=== PATIENT | male | born 1960 | race Caucasian/White ===

== ENCOUNTER 2017-02-13 18:26 | Emergency (ER) | payer MEDICARE, MEDICAID ==
[2017-02-13] VITALS (7 sets, daily range): BP systolic 87–136; BP diastolic 48–83
[~2017-02-13] VITALS: Ht 175.3 cm; Wt 70.3 kg
[~2017-02-13 18:26] MED LIST: ACYCLOVIR400 MG ORAL; ANDROGEL1.25 GM TD; ATORVASTATIN CA20 MG ORAL; DIVALPROEX SOD500 MG PO; FLUPHENAZINE HCL1 MG PO; NORVIR100 MG ORAL; PREZISTA400 MG ORAL; PROPRANOLOL HCL20 MG ORAL; SEROSTIM6 M1 SQ; TRUVADA 200 MG1 EAC1 ORAL; VENLAFAXINE HCL75 MG ORAL; [UNRECOGNIZED DRUG - OTHER] PO
[2017-02-13] MEDS ORDERED: CREON DR 6,0001 EACH PO (18:51)
--- NOTE | 2017-02-13 19:00 | Emergency Room Report ---
History of Present Illness General Chief Complaint: Multiple Trauma/Fall Source: Patient Present Illness HPI The patient is a 56-year-old male with a history of HIV, seizure disorder, history of multiple syncopes, and methamphetamine use presenting for syncope and facial pain. The patient states that he had just finished a workup for the first time in 3 months, went from a bending over to standing position, felt dizzy and fell forward. he is unsure of how long he was unconscious. he awoke with pain and bleeding of the nose. he states that this exact situation has occurred twice in the past. He states that he has only been taking 2 Depakote instead of 3 as he is supposed to. He states that he has not been eating well or drinking water well. The pain is described as a 6/10 dull ache to the nose and does not radiate. Pain worse with touch. He denies any other symptoms including nausea, vomiting, fever, chills, chest pain, shortness of breath, dizziness, blurred vision Allergies: Coded Allergies: No Known Allergies (Unverified , 07/25/13) Patient History Past Medical History: see triage record Past Surgical History: other Social History: Reports: drug use - methamphetamine, smoking Reviewed Nursing Documentation: PMH: Agreed, PSxH: Agreed Nursing Documentation-PMH Past Medical History: No History, Except For Hx Hypertension: No Hx Pacemaker: No Hx Asthma: No Hx COPD: No Hx Diabetes: No Hx Cancer: No Hx Gastrointestinal Problems: No Hx Dialysis: No History Of Psychiatric Problem: Yes - bipolar Hx Neurological Problems: Yes Hx Cerebrovascular Accident: No Hx Seizures: Yes Hx Tremors: Yes - RIGHT ARM TREMORS Hx Syncope: Yes Review of Systems All Other Systems: negative except mentioned in HPI Physical Exam Vital Signs Date Time Temp Pulse Resp B/P Pulse Ox O2 Delivery O2 Flow Rate FiO2 02/13/17 18:39 98.8 93 16 113/71 98 Room Air Sp02 EP Interpretation: reviewed, normal General Appearance: no apparent distress, alert, GCS 15, non-toxic Head: normocephalic, atraumatic Eyes: bilateral eye PERRL, bilateral eye normal inspection ENT: hearing grossly normal, uvula midline, other - No septal hematoma. TTP, ecchymosis, and edema to mid nose. Nose is midline Neck: full range of motion, supple/symm/no masses Respiratory: chest non-tender, lungs clear, normal breath sounds, speaking full sentences Musculoskeletal: back normal, gait/station normal, normal range of motion, non- tender Neurologic: alert, oriented x3, responsive, motor strength/tone normal, sensory intact, speech normal Psychiatric: judgement/insight normal, memory normal, mood/affect normal, no suicidal/homicidal ideation Skin: normal color, no rash, warm/dry, well hydrated Lymphatic: no adenopathy Medical Decision Making PA Attestation Dr. Littlejohn is my supervising physician. Patient management was discussed with my supervising physician Diagnostic Impression: Primary Impression: Orthostatic hypotension Additional Impressions: Syncope Qualified Codes: R55 - Syncope and collapse Nasal fracture Qualified Codes: S02.2XXA - Fracture of nasal bones, initial encounter for closed fracture ER Course The patient is a 56-year-old male presenting for syncope and facial pain status post fall DDx: ACS, alcohol intox, drug abuse, positional hypotension, vasovagal episode, dehydration, fracture, septal hematoma PE: vitals WNL at rest. Orthostatic vital signs show hypotension with elevated heart rate with position change. HEENT: Head NC/AT. PERRL. EOMI. Nose has ecchymosis, edema, and TTP over the nasal bridge. midline. No septal hematoma. CBC unremarkable. No anemia. CMP shows elevated creatinine Cardiac enzymes WNL. UDS shows + methamphetamine and THC Depakote levels below normal range CT head unremarkable. CT facial bones shows acute nasal fracture. Pt is given IV fluids and norco and is feeling better. He is given one dose of depakote. He will be MD'ed home with a prescription for norco and motrin and will start to take 3 depakote daily as directed. He needs to FU with PMD and ENT. ER precautions given Laboratory Tests Test 02/13/17 19:05 02/13/17 19:51 White Blood Count 7.6 K/UL (4.8-10.8) Red Blood Count 4.55 M/UL (4.70-6.10) L Hemoglobin 14.1 G/DL (14.2-18.0) L Hematocrit 41.7 % (42.0-52.0) L Mean Corpuscular Volume 92 FL (80-99) Mean Corpuscular Hemoglobin 31.1 PG (27.0-31.0) H Mean Corpuscular Hemoglobin Concent 33.9 G/DL (32.0-36.0) Red Cell Distribution Width 11.9 % (11.6-14.8) Platelet Count 280 K/UL (150-450) Mean Platelet Volume 7.4 FL (6.5-10.1) Neutrophils (%) (Auto) 67.4 % (45.0-75.0) Lymphocytes (%) (Auto) 20.8 % (20.0-45.0) Monocytes (%) (Auto) 9.0 % (1.0-10.0) Eosinophils (%) (Auto) 2.1 % (0.0-3.0) Basophils (%) (Auto) 0.7 % (0.0-2.0) Sodium Level 135 mEQ/L (135-145) Potassium Level 4.7 mEQ/L (3.4-4.9) Chloride Level 93 mEQ/L (98-107) L Carbon Dioxide Level 25 mEQ/L (20-30) Anion Gap 17 (5-15) H Blood Urea Nitrogen 21 mg/dL (7-23) Creatinine 1.4 mg/dL (0.7-1.2) H Estimate Glomerular Filtration Rate 52.6 mL/min (>60) Glucose Level 102 mg/dL (74-106) Calcium Level 10.0 mg/dL (8.6-10.2) Total Bilirubin 0.3 mg/dL (0.0-1.2) Aspartate Amino Transferase (AST) 33 U/L (5-40) Alanine Aminotransferase (ALT) 20 U/L (3-41) Alkaline Phosphatase 85 U/L (40-129) Creatine Kinase MB 4.6 ng/mL (< 6.7) Troponin I < 0.30 ng/mL (<=0.30) Total Protein 7.2 g/dL (6.6-8.7) Albumin 3.8 g/dL (3.5-5.2) Globulin 3.4 g/dL Albumin/Globulin Ratio 1.1 (1.0-2.7) Lipase 24 U/L (< 60) Valproic Acid Level 29 ug/mL (50-100) L Urine Color Yellow Urine Appearance Clear Urine pH 5 (4.5-8.0) Urine Specific [place] 1.030 (1.005-1.035) Urine Protein 2+ (NEGATIVE) H Urine Glucose (UA) Negative (NEGATIVE) Urine Ketones 1+ (NEGATIVE) H Urine Occult Blood 2+ (NEGATIVE) H Urine Nitrite Negative (NEGATIVE) Urine Bilirubin Negative (NEGATIVE) Urine Urobilinogen 1 MG/DL (0.0-1.0) H Urine Leukocyte Esterase 1+ (NEGATIVE) H Urine RBC 5-10 /HPF (0 - 0) H Urine WBC 2-4 /HPF (0 - 0) Urine Squamous Epithelial Cells None /LPF (NONE/OCC) Urine Bacteria Few /HPF (NONE) Urine Opiates Screen Negative (NEGATIVE) Urine Barbiturates Screen Negative (NEGATIVE) Phencyclidine (PCP) Screen Negative (NEGATIVE) Urine Amphetamines Screen Positive (NEGATIVE) H Urine Benzodiazepines Screen Negative (NEGATIVE) Urine Cocaine Screen Negative (NEGATIVE) Urine Marijuana (THC) Screen Positive (NEGATIVE) H Lab Results Impression CBC unremarkable. No anemia. CMP shows elevated creatinine Cardiac enzymes WNL. UDS shows + methamphetamine and THC Depakote levels below normal range EKG Diagnostic Results Rate: normal - 92 Rhythm: NSR ST Segments: no acute changes ASA given to the pt in ED: No PA Scribe Text EKG was reviewed and read with my supervising physician. No acute ST segment changes are seen. Normal rate and rhythm. No acute changes. CT/MRI/US Diagnostic Results CT/MRI/US Diagnostic Results #1: Imaging Test Ordered: CT head Impression unremarkable CT/MRI/US Diagnostic Results #2: Imaging Test Ordered: ct facial bones Impression + nasal fracture. Last Vital Signs Date Time Temp Pulse Resp B/P Pulse Ox O2 Delivery O2 Flow Rate FiO2 02/13/17 18:39 98.8 93 16 113/71 98 Room Air Status: improved Disposition: HOME, SELF-CARE Condition: Improved Scripts Hydrocodone Bit/Acetaminophen 5-325* (NORCO 5-325 TABLET*) 1 Each Tablet 1 TAB ORAL Q6HR Y for For Pain, #10 TAB Prov: TERZIANJACQUEY P.A. 02/13/17 Ibuprofen* (MOTRIN*) 600 Mg Tablet 600 MG ORAL Q8H Y for For Pain, #30 TAB 0 Refills Prov: TERZIAN,FLORINA P.A. 02/13/17 AFUAANJACQUEY P.A. February 13, 2017 18:59
[2017-02-13 19:45] LABS: TROPONIN I < 0.30 ng/mL (<=0.30)
[2017-02-13 19:46] LABS: ALBUMIN/GLOBULIN RATIO 1.1 (1.0-2.7); CREATININE 1.4 mg/dL (0.7-1.2); GLOMERULAR FILTRATION RATE 52.6 mL/min (>60); POTASSIUM 4.7 mEQ/L (3.4-4.9); TOTAL PROTEIN 7.2 g/dL (6.6-8.7)
[2017-02-13 19:56] LABS: CKMB 4.6 ng/mL (< 6.7)
[2017-02-13 20:17] LABS: BASOPHILS % (AUTO) 0.7 % (0.0-2.0); EOSINOPHILS % (AUTO) 2.1 % (0.0-3.0); LYMPHOCYTES % (AUTO) 20.8 % (20.0-45.0); MEAN CORPUSCULAR HEMOGLOBIN 31.1 PG (27.0-31.0); MEAN CORPUSCULAR HGB CONC 33.9 G/DL (32.0-36.0); MEAN CORPUSCULAR VOLUME 92 FL (80-99); MEAN PLATELET VOLUME 7.4 FL (6.5-10.1); NEUTROPHILS % (AUTO) 67.4 % (45.0-75.0); PLATELET COUNT 280 K/UL (150-450); RED BLOOD COUNT 4.55 M/UL (4.70-6.10); RED CELL DISTRIBUTION WIDTH 11.9 % (11.6-14.8); WHITE BLOOD COUNT 7.6 K/UL (4.8-10.8)
[2017-02-13 20:21] LABS: APPEARANCE,URINE CLEAR; KETONES,URINE 1+ (NEGATIVE); LEUKOCYTE ESTERASE ,URINE 1+ (NEGATIVE); NITRITE,URINE NEGATIVE (NEGATIVE); PH,URINE 5 (4.5-8.0); PROTEIN,URINE 2+ (NEGATIVE); UROBILINOGEN,URINE 1 MG/DL (0.0-1.0)
[2017-02-13 20:30] LABS: BACTERIA,URINE FEW /HPF
[2017-02-13] MEDS ORDERED: Depakote 500mg tab ORAL ONE (20:45)
[2017-02-13] MEDS ORDERED: Norco 5mg/325mg tab ORAL ONE (21:00)
[2017-02-13] MEDS ORDERED: IBUPROFEN600 MG ORAL (21:01)
[2017-02-13] MEDS ORDERED: NORCO 5-325 TA1 EAC1 ORAL (21:01)
--- NOTE | 2017-02-14 09:10 | Diagnostic Imaging Report ---
Indications: Patient changes and had a fall Technique: Spiral acquisitions obtained through the brain. Angled axial and coronal 5 x 5 mm slices were reconstructed. Total dose length product 1490 mGycm. CTDI vol(s) 70 mGy. Dose reduction achieved using automated exposure control Comparison: 07/25/2013 Findings: Focal low attenuation, presumably an area of encephalomalacia measuring approximately 12 mm diameter is seen in the left frontal deep white matter, unchanged. No acute hemorrhage or edema. No mass effect or midline shift. There is mild age-related enlargement of the ventricles and extra-axial CSF spaces. There is mild periventricular deep white matter chronic ischemic change. Intact calvarium. Normal orbits and sinuses. No significant interim change the previous study Impression: Negative for acute intracranial bleed or mass effect Old left frontal encephalomalacia Other chronic and age-related changes, as described This agrees with the preliminary interpretation provided overnight by Dr. Hussein The CT scanner at [facility] is accredited by the [employer] and the scans are performed using protocols designed to limit radiation exposure to as low as reasonably achievable to attain images of sufficient resolution adequate for diagnostic evaluation.
--- NOTE | 2017-02-14 09:13 | Diagnostic Imaging Report ---
Indications: PAIN patient fainted and had a fall Technique: Spiral images obtained through the facial bones. No IV contrast utilized. Multiplanar reconstructions were generated.Total dose length product 616 mGycm. CTDIvol(s) 28mGy. Dose reduction achieved using automated exposure control Comparison: None Findings: There is a comminuted minimally displaced fracture of the anterior nasal bone. There may also be a fracture of the anterior nasal septum. There is also a fracture of the nasal process of the maxilla. There is mild associated soft tissue swelling with some soft tissue gas likely indicating penetrating trauma. No other acute fractures. There is minimal left maxillary sinus mucosal thickening and minimal bilateral ethmoid disease. No worrisome sinus air-fluid levels are demonstrated. The optic globes are intact. Intact dentition. Impression: Positive for nasal bone, nasal process of the maxilla, and possibly associated nasal septal fracture Minimal sinus disease This agrees with the preliminary interpretation provided overnight by Dr. Hussein The CT scanner at [facility] is accredited by the [employer] and the scans are performed using protocols designed to limit radiation exposure to as low as reasonably achievable to attain images of sufficient resolution adequate for diagnostic evaluation.
--- NOTE | 2017-02-14 10:50 | Diagnostic Imaging Report ---
Indication: SYNCOPE Technique: One view of the chest Comparison: 10/22/2014 Findings: Lungs and pleural spaces are clear. Heart size is normal. No significant interim change Impression: No acute process
--- NOTE | 2017-02-15 16:59 | Cardiology Report ---
APPROVED REPORT EKG Measurement Heart [id number] Normal sinus rhythm Incomplete right bundle branch block Borderline ECG
== END 2017-02-13 21:43 | disposition home or self-care (01) ==
LOC: EMR 19:35
DX: I95.1 Orthostatic hypotension (principal); R55 Syncope and collapse; S02.2XXA Fracture of nasal bones, initial encounter for closed fracture; W19.XXXA Unspecified fall, initial encounter; Y92.89 Other specified places as the place of occurrence of the external cause; G93.89 Other specified disorders of brain; G40.909 Epilepsy, unspecified, not intractable, without status epilepticus; F17.200 Nicotine dependence, unspecified, uncomplicated; F15.90 Other stimulant use, unspecified, uncomplicated
CPT/HCPCS: 36415; 70450; 70486; 71010; 80053; 80164; 80300; 81003; 82553; 83690; 84484; 85025; 93005; 96374; 96375

== ENCOUNTER → 2019-04-11 | Outpatient (CLI) | payer MEDICARE, MEDICAID ==
[~2019-04-11] MED LIST changes: +CREON DR 6,0001 EACH PO; +IBUPROFEN600 MG ORAL; +NORCO 5-325 TA1 EAC1 ORAL
--- NOTE | 2019-04-11 12:44 | Diagnostic Imaging Report ---
Indication: Cough Comparison: 02/13/2017 A single view chest radiograph was obtained. Findings: Cardiomediastinal appearance is within normal limits for age. The lungs are clear. Pulmonary vascularity is appropriate. The diaphragmatic contour is smooth and costophrenic angles are sharp. No pleural effusions are identified. The bones are unremarkable. Impression: No acute findings
== END | disposition home or self-care (01) ==
LOC: RAD 09:26
DX: J20.9 Acute bronchitis, unspecified (principal)
CPT/HCPCS: 71046

== ENCOUNTER 2020-09-14 12:32 | Emergency (ER) | payer MEDICARE, MEDICAID ==
[~2020-09-14] VITALS: Ht 177.8 cm; Wt 77.1 kg
--- NOTE | 2020-09-14 12:40 | NUR ---
ED Nurse Note: Pt ambulated to ED d/t swollen lower lip onset last night. Pt denies eating anything unusual; ate pb sandwich but denies allergies to nuts. Pt is AOx4, calm and cooperative to care, VSS, on RA, afebrile on triage.
[2020-09-14 12:45] VITALS: BP 137/85
--- NOTE | 2020-09-14 12:45 | NUR ---
Note khloe in EDM - 09/14/20 at 1437 by FILIPE ER DISCHARGE NOTE: Patient is cleared to be discharged per ERPA, pt is aox4, on room air, with stable vital signs. pt was given dc and prescription instructions, pt was able to verbalize understanding, pt id band removed. pt is able to ambulate with steady gait. pt took all belongings.
--- NOTE | 2020-09-14 12:58 | Emergency Room Report ---
History of Present Illness General Chief Complaint: Edema Present Illness HPI 59-year-old male with history of hypertension currently taking losartan here complaining of lower lip edema and pain after eating last night. Patient denies anaphylaxis, speaking full sentences. Patient is hard of hearing. Denies chest pain shortness of breath. Right lower lobe appears to be edematous. Airway clear. Has not taken medication for symptom relief. Patient reports that he has been taking losartan for a long time. Denies chest pain, shortness of breath, headache and numbness. Denies fever chills. (Tiana Grover) Allergies: Coded Allergies: No Known Allergies (Unverified , 07/25/13) COVID-19 Screening Contact w/high risk pt: Yes Experienced COVID-19 symptoms?: No COVID-19 Screening: Negative COVID-19 COVID-19 Testing Source: unk (Tiana Grover) Patient History Past Medical History: see triage record Past Surgical History: none Pertinent Family History: none Reviewed Nursing Documentation: PMH: Agreed; PSxH: Agreed (Tiana Grover) Nursing Documentation-PMH Hx Hypertension: No Hx Pacemaker: No Hx Asthma: No Hx COPD: No Hx Diabetes: No Hx Cancer: No Hx Gastrointestinal Problems: No Hx Dialysis: No Hx Neurological Problems: Yes Hx Cerebrovascular Accident: No Hx Seizures: Yes Hx Tremors: Yes - RIGHT ARM TREMORS Hx Syncope: Yes (Tiana Grover) Review of Systems All Other Systems: negative except mentioned in HPI (Tiana Grover) Physical Exam Vital Signs Date Time Temp Pulse Resp B/P (MAP) Pulse Ox O2 Delivery O2 Flow Rate FiO2 09/14/20 12:37 98.4 77 19 137/85 (102) 94 Room Air Sp02 EP Interpretation: reviewed, normal General Appearance: no apparent distress, alert, GCS 15, non-toxic Head: normocephalic, atraumatic Eyes: bilateral eye normal inspection, bilateral eye PERRL ENT: hearing grossly normal, normal pharynx, normal voice, other - angioedema Right lower lip Neck: full range of motion, supple, supple/symm/no masses, other - no anaphylaxis Respiratory: chest non-tender, lungs clear, normal breath sounds, no retraction, no accessory muscle use, speaking full sentences Cardiovascular #1: regular rate, rhythm, no edema Gastrointestinal: normal bowel sounds, non tender, soft, non-distended, no guarding, no rebound Rectal: deferred Musculoskeletal: back normal Neurologic: alert, motor strength/tone normal, oriented x3, sensory intact, responsive, speech normal Psychiatric: judgement/insight normal, memory normal, mood/affect normal, no suicidal/homicidal ideation Skin: no rash Lymphatic: no adenopathy (Tiana Grover) Medical Decision Making PA Attestation Diagnosis and treatment plans were reviewed and discussed with my supervising physician Dr. Corey (Tiana Grover) Diagnostic Impression: Primary Impression: Angioedema ER Course 59-year-old male with history of hypertension currently taking losartan here complaining of lower lip edema and pain after eating last night. Patient denies anaphylaxis, speaking full sentences. Patient is hard of hearing. Denies chest pain shortness of breath. Right lower lobe appears to be edematous. Airway clear. Has not taken medication for symptom relief. Patient reports that he has been taking losartan for a long time. Denies chest pain, shortness of breath, headache and numbness. Denies fever chills. Ddx considered but are not limited to: Angioedema, anaphylaxis, allergic reaction, pharyngitis Vital signs: are WNL, pt. is afebrile H&PE are most consistent with: Angioedema ORDERS: Prednisone, Benadryl, EpiPen for emergencies ED INTERVENTIONS: Dexamethasone DISCHARGE: At this time pt. is stable for d/c to home. Will provide printed patient care instructions, and any necessary prescriptions. Care plan and follow up instructions have been discussed with the patient prior to discharge. Take medication as directed, avoid taking losartan as it will exacerbate your angioedema and anaphylaxis. Use EpiPen only if anaphylaxis. If worsening symptoms return to the emergency room (Tiana Grover) ER Course I saw and evaluated the patient and discussed the care with Tiana GANDARA. I agree with the findings and plan as documented in the note. 59-year-old male with a patent airway, only swelling of the right lower lip no acute changes over 24 hours findings occurred last night, patient instructed to discontinue losartan Patient with mild angioedema of only the bottom lip strict return precautions discussed follow-up with PCP (Dwight Corey MD) Last Vital Signs Date Time Temp Pulse Resp B/P (MAP) Pulse Ox O2 Delivery O2 Flow Rate FiO2 09/14/20 12:37 98.4 77 19 137/85 (102) 94 Room Air (Tiana Grover) Disposition: HOME, SELF-CARE Condition: Stable Scripts Epinephrine (Epipen 2-Jono) 0.3 Mg/0.3 Ml Auto.injct 0.3 MG IM PRN, #2 EA if anaphylaxis only Prov: Tiana Grover 09/14/20 Diphenhydramine HCl (Benadryl) 25 Mg Capsule 25 MG PO TID, #30 CAP Prov: Tiana Grover 09/14/20 Prednisone* (PREDNISONE*) 20 Mg Tablet 40 MG ORAL DAILY for 5 Days, #10 TAB Prov: Tiana Grover 09/14/20 Patient Instructions: Angioedema, Edema, [id number] Additional Instructions: Take medication as directed, follow primary care provider, avoid taking your losartan, use epinephrine pen only when anaphylaxis. If worsening symptoms return to the emergency room Tiana Grover Sep 14, 2020 12:58 Dwight Corey MD Sep 16, 2020 12:51
[2020-09-14] MEDS ORDERED: PREDNISONE20 MG ORAL (13:01)
[2020-09-14] MEDS ORDERED: BENADRYL25 M3 PO (13:01)
[2020-09-14] MEDS ORDERED: EPIPEN 2-P0.3 MG/0.3 IM (13:01)
[2020-09-14 13:17] VITALS: BP 136/86
--- NOTE | 2020-09-14 13:17 | NUR ---
ER DISCHARGE NOTE: Patient is cleared to be discharged per ERPA, pt is aox4, on room air, with stable vital signs. pt was given dc and prescription instructions, pt was able to verbalize understanding, pt id band removed. pt is able to ambulate with steady gait. pt took all belongings.
== END 2020-09-14 13:17 | disposition home or self-care (01) ==
LOC: EMR 13:01
DX: T78.3XXA Angioneurotic edema, initial encounter (principal); I10 Essential (primary) hypertension; Z79.899 Other long term (current) drug therapy; H91.90 Unspecified hearing loss, unspecified ear
CPT/HCPCS: 96372; 99283; J1100

== ENCOUNTER 2020-09-24 11:25 | Emergency (ER) | payer MEDICARE, MEDICAID ==
[~2020-09-24] VITALS: Ht 177.8 cm; Wt 77.1 kg
[~2020-09-24 11:25] MED LIST changes: +BENADRYL25 M3 PO; +EPIPEN 2-P0.3 MG/0.3 IM; +PREDNISONE20 MG ORAL
[2020-09-24 11:43] VITALS: BP 170/105
--- NOTE | 2020-09-24 11:44 | NUR ---
ED Nurse Note: Pt ambulated to ED from home d/t lip swelling that has been going on over a week ago. Pt is AOx4, calm and cooperative to care, VSS, on breathing even and unlabored, pt satting at 100% on RA. Placed on RME, ERMD at bedside.
[2020-09-24] MEDS ORDERED: BACTRIM DS TAB1 EAC1 ORAL (11:57)
[2020-09-24] MEDS ORDERED: PREDNISONE20 MG ORAL (11:57)
[2020-09-24] MEDS ORDERED: BENADRYL25 MG ORAL (11:57)
--- NOTE | 2020-09-24 11:57 | Emergency Room Report ---
History of Present Illness General Chief Complaint: Allergic Reaction Source: Patient Present Illness HPI 59-year-old male with past medical history of HIV, bipolar disorder, hypertension presents for recheck for right lower lip swelling. He was seen last week and told he has possible angioedema, however his symptoms have not improved. They have stayed the same. No progression of symptoms. He states that there was some "drainage" from the right lip and has some sore blisters there too. He denies any oral sex, odynophagia, drooling, stridor or concern for STDs at this time. He is not sexually active. His infectious disease doctor is across the street from [facility]. Last CD4 count was greater than 500. Last viral load was undetectable. He denies any shortness of breath, nausea, vomiting, stridor, drooling, headache, vision changes, neck pain, petechial rash, chest pain or hemoptysis No new dietary changes, medications, soaps or detergents He denies history of hospitalization for anaphylaxis or angioedema. The patient's symptoms were gradual onset, severity was moderate, duration since greater than 1 week. Quality: Swollen, draining pus Past medical history: Bipolar disorder, HIV Past surgical history: Denies Smoking: Denies Alcohol use: Denies Drug use: Denies Review of systems: CONST: No fevers or chills, No night sweats PULMONARY: No productive cough, No shortness of breath CARDIAC: No chest pain, No palpitations GI: No vomiting, No diarrhea , No melena_or_BRBPR : No dysuria, No hematuria, No discharge NEURO: No new_focal_weakness_or_numbness, No confusion, No vision changes 14 point Review of Systems is otherwise negative except per HPI Physical Exam: GENERAL: Awake_alert_ nontoxic, no acute distress Spo2 100% on RA -normal EYES: Extraocular muscles are intact. Conjunctivae clear. Lids without swelling ENT: Right lower lip induration with 2 blisters. No active drainage. No swelling of hard/soft palate/tongue swelling. No hoarse voice,stridor, drooling. No oral candidiasis or thrush. External nose and ear normal_in_appearance. Oropharynx clear. Head_atraumatic, Moist_oral_mucosa. Poor dentition. No hot potato voice. No submandibular swellin g or crepitus. No tonsilar exudate or swelling. NECK: No JVD. No meningismus. No thyromegaly. Supple. Trachea midline RESP: Normal respiratory effort. Symmetric rise. No stridor. Clear_to_auscultation_No_rales_No_wheezes CARDIAC: Regular rate and regular rhytm. No_significant pedal edema. ABDOMEN: Soft. Nondistended. Nontender_No_rebound_or_guarding. MSK: Normal muscle tone, without rigidity. Extremities without asymmetric deformity or swelling. SKIN: Warm and dry. No visible cyanosis or pallor. No petechiae NEUROLOGIC: Alert, oriented x3. Motor_and_sensation_grossly_intact. No truncal ataxia. Gait_normal Psych: Normal mood and affect, normal judgment and insight - COORDINATION OF CARE Case was discussed with: Patient Chart reviewed from previous ED visit. Medical Decision Making/Plan: DDx: cellulitis vs abscess vs thrush DOUBT angioedema, anaphylaxis, shawna, or deep space neck infection Initial VSS are stable. Airway is intact with no stridor, drooling, or increased WOB. No oral, tongue swelling or hoarse voice. No signs of deep space neck infection. There is stable R lower lip swelling with pustular indurated lesion. No submandibular crepitus or swelling. No shawna angina. Patient appears to be presenting with mild lower lip infection vs Less likely allergic reaction. There is no evidence of angioedema, no oropharyngeal involvement/thrush, no difficulty breathing or nausea vomiting. Patient is nontoxic and well-appearing the patient is tolerating fluids. The findings are minimal and due to nonprogression of symptoms here the patient is safe to discharge home. The patient feels comfortable with plan and will return immediately if symptoms begin to worsen. Patient given a dose of steroids and Benadryl here in the emergency department. I suspect infectious etiology. Unlikely angioedema, patient will be discharged with an bactrim, EpiPen and Benadryl. Patient was instructed to avoid all potential allergic stimuli in the future The patient was instructed to avoid potential precipitating factor and to follow up with their regular physician for referral to windows server specialist for definitive allergy testing. Pertinent results reviewed with the patient. I educated the patient on the current treatment plan including the risks, benefits, and alternatives. I also discussed the extent and limitations of the current evaluation. The patient expressed understanding and agreement with plan. I recommended PMD follow-up within 12-24 hrs. Also advised that the patient return to the Emergency Department as soon as possible if they experience any new, persistent, or worsening symptoms. Allergies: Coded Allergies: LOSARTAN (Verified Allergy, Severe, angioedema, 09/16/20) COVID-19 Screening Contact w/high risk pt: No Experienced COVID-19 symptoms?: No COVID-19 Testing performed ASSISTANT GOLF COURSE SUPERINTENDENT: No Nursing Documentation-PMH Past Medical History: No History, Except For Hx Hypertension: No Hx Pacemaker: No Hx Asthma: No Hx COPD: No Hx Diabetes: No Hx Cancer: No Hx Gastrointestinal Problems: No Hx Dialysis: No Hx Neurological Problems: Yes Hx Cerebrovascular Accident: No Hx Seizures: Yes Hx Tremors: Yes - RIGHT ARM TREMORS Hx Syncope: Yes Physical Exam Vital Signs Date Time Temp Pulse Resp B/P (MAP) Pulse Ox O2 Delivery O2 Flow Rate FiO2 09/24/20 11:30 99.0 88 18 170/105 (126) 100 Room Air Sp02 EP Interpretation: reviewed, normal Medical Decision Making Diagnostic Impression: Primary Impression: Infection of lip Additional Impression: Lip swelling Reevaluation Time: 11:55 Last Vital Signs Date Time Temp Pulse Resp B/P (MAP) Pulse Ox O2 Delivery O2 Flow Rate FiO2 09/24/20 11:43 99.0 18 170/105 100 Room Air 09/24/20 11:43 88 Status: improved Disposition: HOME, SELF-CARE Admit Decision Time: 11:55 Condition: Stable Scripts Diphenhydramine Hcl* (BENADRYL*) 25 Mg Capsule 25 MG ORAL Q6H PRN for Itching for 7 Days, #28 CAP Prov: Nivia Hernandez D.O. 09/24/20 Prednisone* (PREDNISONE*) 20 Mg Tablet 20 MG ORAL DAILY for 3 Days, #6 TAB 0 Refills Prov: Samir Hernandeze D.O. 09/24/20 Trimethoprim/Sulfamethoxazole 160/800* (BACTRIM DS TABLET*) 1 Each Tablet 1 TAB ORAL Q12H, #14 TAB 0 Refills Prov: Nivia Hernandez D.O. 09/24/20 Patient Instructions: Abscess, Allergies, Cellulitis, [id number] Additional Instructions: Instructions for patient/button tufter: Follow up with your physician in 12-24 hrs for reevaluation and wound check. Use EpiPen only in case of emergencies as we discussed. Follow-up with your infectious disease specialist for continued management of your HIV Follow-up with your doctor sooner if your condition requires a more timely clinical reevaluation. Return to the emergency department immediately if you feel that your condition is worsening or if you have any new or concerning symptoms. Review your discharge instructions and take any prescriptions given as instructed. [facility] PROVIDES FREE OR LOW-COST HEALTH SERVICES TO PEOPLE WHO CAN SHOW PROOF THAT THEY LIVE IN [facility]. TO FIND MORE CLINICS PARTNERED WITH [facility] TO PROVIDE SERVICE, PLEASE CALL . Nivia Hernandez D.O. Sep 24, 2020 11:57
[2020-09-24] MEDS ORDERED: Tetanus/Diptheria/Pertussis IM ONE ×2 (12:00)
[2020-09-24 12:07] VITALS: BP 158/88
--- NOTE | 2020-09-24 12:07 | NUR ---
ER DISCHARGE NOTE: Patient is cleared to be discharged per ERMD, pt is aox4, on room air, with stable vital signs. pt was given dc and prescription instructions, pt was able to verbalize understanding, pt id band removed. pt is able to ambulate with steady gait. pt took all belongings.
[2020-09-25] MEDS ORDERED: MUPIROCIN22 GM TOPIC (15:26)
== END 2020-09-24 12:07 | disposition home or self-care (01) ==
LOC: EMR 11:45
DX: L08.9 Local infection of the skin and subcutaneous tissue, unspecified (principal); R22.0 Localized swelling, mass and lump, head; G40.909 Epilepsy, unspecified, not intractable, without status epilepticus; B20 Human immunodeficiency virus [HIV] disease; Z88.8 Allergy status to other drugs, medicaments and biological substances
CPT/HCPCS: 90471; 90715; 99282; J8540

== ENCOUNTER 2020-09-25 15:00 | Emergency (ER) | payer MEDICARE, MEDICAID ==
[~2020-09-25] VITALS: Ht 177.8 cm; Wt 77.1 kg
[~2020-09-25 15:00] MED LIST changes: +BACTRIM DS TAB1 EAC1 ORAL; +BENADRYL25 MG ORAL
[2020-09-25 15:21] VITALS: BP 129/87
--- NOTE | 2020-09-25 15:21 | NUR ---
ED Nurse Note: pt presents to ED c/o bottom lip swelling and open sore. states that he was seen and treated here yesterday, has been taking abx and was told to come back today for reevaluation of lip. pt is also c/o L ear pain
--- NOTE | 2020-09-25 15:25 | Emergency Room Report ---
History of Present Illness General Chief Complaint: Pain Present Illness HPI 60-year-old male with history of hypertension currently controlled here requesting a follow-up on lip swelling and infection. Patient was seen here at ED 1 day ago and was prescribed prednisone, Bactrim DS, Benadryl patient reports that the lip started draining today. No anaphylaxis noted. Patient appears to be afebrile and stable. Denies trauma. Allergies: Coded Allergies: LOSARTAN (Verified Allergy, Severe, angioedema, 09/16/20) COVID-19 Screening Contact w/high risk pt: No Experienced COVID-19 symptoms?: No COVID-19 Testing performed MELON PACKER: No Patient History Past Medical History: see triage record Past Surgical History: none Pertinent Family History: none Immunizations: UTD Reviewed Nursing Documentation: PMH: Agreed; PSxH: Agreed Nursing Documentation-PMH Hx Hypertension: No Hx Pacemaker: No Hx Asthma: No Hx COPD: No Hx Diabetes: No Hx Cancer: No Hx Gastrointestinal Problems: No Hx Dialysis: No Hx Neurological Problems: Yes Hx Cerebrovascular Accident: No Hx Seizures: Yes Hx Tremors: Yes - RIGHT ARM TREMORS Hx Syncope: Yes Review of Systems All Other Systems: negative except mentioned in HPI Physical Exam Vital Signs Date Time Temp Pulse Resp B/P (MAP) Pulse Ox O2 Delivery O2 Flow Rate FiO2 09/25/20 15:17 98.6 87 18 129/87 (101) 97 Room Air Sp02 EP Interpretation: reviewed, normal General Appearance: no apparent distress, alert, GCS 15, non-toxic Head: normocephalic, atraumatic Eyes: bilateral eye normal inspection, bilateral eye PERRL ENT: hearing grossly normal, normal pharynx, normal voice, other - Right lower lip cellulitis with minimal pus drainage Neck: full range of motion, supple, other - No anaphylaxis noted Respiratory: chest non-tender, lungs clear, normal breath sounds, speaking full sentences Cardiovascular #1: no edema, no gallop Gastrointestinal: non tender, soft Rectal: deferred Musculoskeletal: back normal Neurologic: alert, motor strength/tone normal, oriented x3, sensory intact, responsive, speech normal Psychiatric: judgement/insight normal, memory normal, mood/affect normal, no suicidal/homicidal ideation Skin: rash - Right lower lip cellulitis with pus drainage Lymphatic: no adenopathy Medical Decision Making PA Attestation All my diagnosis and treatment plans were reviewed ad discussed with my supervising physician Dr. Keita Diagnostic Impression: Primary Impression: Cellulitis, lip ER Course 60-year-old male with history of hypertension currently controlled here requesting a follow-up on lip swelling and infection. Patient was seen here at ED 1 day ago and was prescribed prednisone, Bactrim DS, Benadryl patient reports that the lip started draining today. No anaphylaxis noted. Patient appears to be afebrile and stable. Denies trauma. Ddx considered but are not limited to : Cellulitis, angioedema, anaphylaxis, superficial infection, abscess Vital signs: are WNL, pt. is afebrile H&PE are most consistent with: Left cellulitis ORDERS: Mupirocin ED INTERVENTIONS: None required at this time. DISCHARGE: At this time pt. is stable for d/c to home. Will provide printed patient care instructions, and any necessary prescriptions. Care plan and follow up instructions have been discussed with the patient prior to discharge. Advised patient to continue taking antibiotics as well as prednisone and apply antibiotic ointment at this time the wound is healing patient to follow primary care provider. Patient no longer taking blood pressure medication that was causing angioedema. Last Vital Signs Date Time Temp Pulse Resp B/P (MAP) Pulse Ox O2 Delivery O2 Flow Rate FiO2 09/25/20 15:21 98.6 18 129/87 97 Room Air 09/25/20 15:17 87 Disposition: HOME, SELF-CARE Condition: Stable Scripts Mupirocin* (MUPIROCIN*) 22 Gm Oint...g. 1 APPLIC TOPIC THREE TIMES A DAY, #22 GM Prov: Tiana Grover 09/25/20 Patient Instructions: Cellulitis Additional Instructions: Continue taking your antibiotic, prednisone, and Benadryl. Apply ointment to the affected area. At this time your infection is healing. If worsening symptoms return to the emergency room Tiana Grover Sep 25, 2020 15:25
[2020-09-25] MEDS ORDERED: MUPIROCIN22 GM TOPIC (15:26)
[2020-09-25 15:31] VITALS: BP 129/87
--- NOTE | 2020-09-25 15:31 | NUR ---
ER DISCHARGE NOTE: Patient is cleared to be discharged per ERMD, pt is aox4, on room air, with stable vital signs. pt was given dc and prescription instructions, pt was able to verbalize understanding, pt id band removed without complications. pt is able to ambulate with steady gait. pt took all belongings.
[2020-09-27] MEDS ORDERED: AMOX TR-K CLV1 EAC2 ORAL (14:39)
[2020-09-27] MEDS ORDERED: DOXYCYCLINE MO100 MG ORAL (14:39)
[2020-09-27] MEDS ORDERED: ACETAMINOPHEN-1 EAC1 ORAL (14:39)
== END 2020-09-25 15:31 | disposition home or self-care (01) ==
LOC: EMR 15:30
DX: K13.0 Diseases of lips (principal); I10 Essential (primary) hypertension; G40.909 Epilepsy, unspecified, not intractable, without status epilepticus; Z88.8 Allergy status to other drugs, medicaments and biological substances; Z79.899 Other long term (current) drug therapy
CPT/HCPCS: 99282

== ENCOUNTER → 2020-10-28 | Emergency (ER) | payer MEDICARE, MEDICAID ==
[~2020-10-28] VITALS: Ht 177.8 cm; Wt 72.6 kg
[~2020-10-28] MED LIST changes: +ACETAMINOPHEN-1 EAC1 ORAL; +AMOX TR-K CLV1 EAC2 ORAL; +Bacitracin Oint UD TOPIC ONE; +DOXYCYCLINE MO100 MG ORAL; +MUPIROCIN22 GM TOPIC
--- NOTE | 2020-10-28 20:51 | NUR ---
ED Nurse Note: Pt walked into ED due to bilateral hand and finger lesions onset 10 days ago ocassional bleeding from area. pt has a history of mrsa in the mouth. Pt is HIV postive. No sign of infection. Vitals are stable
[2020-10-28 20:53] VITALS: BP 123/76
--- NOTE | 2020-10-28 20:58 | Emergency Room Report ---
History of Present Illness General Chief Complaint: Skin Rash/Abscess Source: Patient Present Illness HPI Patient is a 60-year-old male past medical history of HIV just completed treatment for MRSA infection 3 days ago who presents to the ER complaining of scabs to his fingers. Patient states that he had dry skin that he pulled on. He denies any fever or chills. Denies any discharge from the fingertips but states that he had some scant bleeding when he pulled the dry skin off. He states that it is not painful. Allergies: Coded Allergies: No Known Allergies (Unverified , 10/28/20) COVID-19 Screening Contact w/high risk pt: No Experienced COVID-19 symptoms?: No COVID-19 Testing performed SUPPORT GROUP MANAGER: Yes - September 2020 COVID-19 Screening: Negative COVID-19 COVID-19 Testing Source: unk Patient History Reviewed Nursing Documentation: PMH: Agreed; PSxH: Agreed Nursing Documentation-PMH Past Medical History: No History, Except For Hx Hypertension: No Hx Pacemaker: No Hx Asthma: No Hx COPD: No Hx Diabetes: No Hx Cancer: No Hx Gastrointestinal Problems: No Hx Dialysis: No History Of Psychiatric Problem: Yes - bipolar Hx Neurological Problems: Yes Hx Cerebrovascular Accident: No Hx Seizures: Yes Hx Tremors: Yes - RIGHT ARM TREMORS Hx Syncope: Yes Review of Systems All Other Systems: negative except mentioned in HPI Physical Exam Vital Signs Date Time Temp Pulse Resp B/P (MAP) Pulse Ox O2 Delivery O2 Flow Rate FiO2 10/28/20 20:43 97.3 72 18 123/76 (92) 100 Room Air Sp02 EP Interpretation: reviewed, normal General Appearance: no apparent distress, alert, GCS 15, non-toxic Head: normocephalic, atraumatic Eyes: bilateral eye normal inspection, bilateral eye PERRL ENT: hearing grossly normal, normal pharynx, no angioedema, normal voice Neck: full range of motion, supple/symm/no masses Respiratory: chest non-tender, lungs clear, normal breath sounds, speaking full sentences Cardiovascular #1: regular rate, rhythm Gastrointestinal: non tender, soft, no guarding, no rebound Rectal: deferred Musculoskeletal: normal range of motion Neurologic: associate entertainment editor III-XII nml as tested, oriented x3 Psychiatric: no suicidal/homicidal ideation Skin: other - Fold of skin tolbert from distal fingertips no active bleeding no signs of infection no erythema no discharge no active bleeding normal range of motion Lymphatic: no adenopathy Medical Decision Making Diagnostic Impression: Primary Impression: Skin abnormalities ER Course Patient advised to stop peeling of his skin. I have prophylactically started him on topical antibiotics. No signs of local infection. After discussing risks and benefits of further diagnostics, treatment plans, as well as indications for and risks of admission, the patient is agreeable to being discharged home. I have explained that their evaluation and treatment in the emergency department today is an important step towards them achieving better health but that their evaluation today is not intended to replace further evaluation and treatment by a physician in their local clinic. I have explained that while the current findings suggest no immediate life threatening emergency they will require further evaluation and treatment by a physician of their choice in their area. They understand that it will be necessary for them to review the final reports of their ED visit with their clinic physician. We have reviewed indications for return to the Emergency Department. I have explained that additional time may need to pass and/or additional testing as an outpatient may be necessary before a definitive diagnosis can be made. They tell me they are willing to follow up as instructed within the timeframe I recommend. They appear to understand what we discussed. Additionally they understand that if they are unable to be seen by an outpatient physician they are welcome, and in fact should, return to the Emergency Department for a repeat evaluation. The patient is stable at time of discharge. Last Vital Signs Date Time Temp Pulse Resp B/P (MAP) Pulse Ox O2 Delivery O2 Flow Rate FiO2 10/28/20 20:53 97.3 18 123/76 100 Room Air 10/28/20 20:43 72 Disposition: HOME, SELF-CARE Condition: Stable Scripts Mupirocin* (MUPIROCIN*) 22 Gm Oint...g. 1 APPLIC TOPIC THREE TIMES A DAY for 10 Days, GM Prov: Leonora Woods M.D. 10/28/20 Referrals: [facility] Patient Instructions: Deep Skin Avulsion Additional Instructions: the patient was provided with discharge instructions, notified to follow-up with a primary care doctor and or specialist in the next 24-48 hours, and to return to the ED if they have worsening of their symptoms. Please note that this report is being documented using DRAGON technology. This can lead to erroneous entry secondary to incorrect interpretation by the dictating instrument. Leonora Woods M.D. Oct 28, 2020 20:58
[2020-10-28 20:59] VITALS: BP 123/76
== END | disposition home or self-care (01) ==
LOC: EMR 20:55
DX: L98.9 Disorder of the skin and subcutaneous tissue, unspecified (principal); G40.909 Epilepsy, unspecified, not intractable, without status epilepticus
CPT/HCPCS: 99282

== ENCOUNTER 2020-11-01 13:03 | Emergency (ER) | payer MEDICARE, MEDICAID ==
[~2020-11-01] VITALS: Ht 177.8 cm; Wt 77.1 kg
[~2020-11-01 13:03] MED LIST changes: -Bacitracin Oint UD TOPIC ONE
[2020-11-01 13:22] VITALS: BP 124/74
--- NOTE | 2020-11-01 13:25 | NUR ---
ED Nurse Note: pt stated he was told at a different hospital that he had MRSA on his hands. pt's top part of his fingers look as though the skin is peeling off them. states he's been taking antibiotics and using cream and not getting better. Pt states he has HIV
--- NOTE | 2020-11-01 13:32 | Emergency Room Report ---
History of Present Illness General Chief Complaint: Pain Source: Patient Present Illness HPI Patient is a 60-year-old male presents for increased discomfort to his fingers. Patient had recent ER visit and had been started on topical mupirocin cream. Reports having prior history of HIV as well as hypertension. Had previously had his losartan discontinued. Reports of increased discomfort to the fingertips. Denies any skin discoloration. Had previously been pulling the skin off the status fingers. Denies any fever. Lip swelling had improved since episode of angioedema. Allergies: Coded Allergies: No Known Allergies (Unverified , 10/28/20) COVID-19 Screening Contact w/high risk pt: No Experienced COVID-19 symptoms?: No COVID-19 Testing performed SOLE PAINTER: No Patient History Past Medical History: see triage record Reviewed Nursing Documentation: PMH: Agreed; PSxH: Agreed Nursing Documentation-PMH Past Medical History: No History, Except For Hx Hypertension: No Hx Pacemaker: No Hx Asthma: No Hx COPD: No Hx Diabetes: No Hx Cancer: No Hx Gastrointestinal Problems: No Hx Dialysis: No Hx Neurological Problems: Yes Hx Cerebrovascular Accident: No Hx Seizures: Yes Hx Tremors: Yes - RIGHT ARM TREMORS Hx Syncope: Yes Review of Systems All Other Systems: negative except mentioned in HPI Physical Exam Vital Signs Date Time Temp Pulse Resp B/P (MAP) Pulse Ox O2 Delivery O2 Flow Rate FiO2 11/01/20 13:16 98.2 87 16 124/74 (91) 95 Room Air Sp02 EP Interpretation: reviewed, normal General Appearance: normal inspection, well appearing, no apparent distress, alert, GCS 15 Head: atraumatic ENT: normal ENT inspection, hearing grossly normal, normal voice Neck: normal inspection, full range of motion, supple, no bony tend Respiratory: normal inspection, lungs clear, normal breath sounds, no respiratory distress, no retraction, no wheezing Cardiovascular #1: regular rate, rhythm, no edema Gastrointestinal: normal inspection, normal bowel sounds, non tender, soft, no guarding, no hernia Genitourinary: no CVA tenderness Musculoskeletal: normal inspection, back normal, normal range of motion Neurologic: alert, motor strength/tone normal, shipper receiver III-XII nml as tested, or iented x3, responsive, speech normal, normal inspection Psychiatric: normal inspection, judgement/insight normal, mood/affect normal Skin: other - slight fingertip erythema near nail folds, no cyanosis, no edema Medical Decision Making Diagnostic Impression: Primary Impression: Hand dermatitis ER Course Presents for discomfort to his fingertips. Differential diagnosis include was not limited to Raynaud's phenomenon, skin infection, paronychia among others. Patient has a benign exam and does not appear to require any imaging or laboratory testing at this time. Patient appears to have some mild perifungal infection to the fingers. Patient's topical antibiotic appears to be adequate for level infection at this time. There does appear to be some discomfort as well as inflammation I think a brief course of oral steroids would be indicated at this time. Patient does not appear to have any evidence of abscesses. Patient declined topical analgesics. Patient advised to recheck with primary care physician in the next 2 to 3 days. He is advised to return if worse. This medical record is generated with [employer] yeast supervisor software. There may be some yeast supervisor discrepancies related to use of this software Last Vital Signs Date Time Temp Pulse Resp B/P (MAP) Pulse Ox O2 Delivery O2 Flow Rate FiO2 11/01/20 13:22 98.2 16 124/74 95 Room Air 11/01/20 13:16 87 Status: improved Disposition: HOME, SELF-CARE Condition: Stable Scripts Prednisone* (PREDNISONE*) 20 Mg Tablet 40 MG ORAL DAILY for 5 Days, #10 TAB Prov: Oziel Keita MD 11/01/20 Referrals: NON PHYSICIAN (PCP) Oziel Keita MD Nov 01, 2020 13:32
[2020-11-01] MEDS ORDERED: PREDNISONE20 MG ORAL (13:33)
[2020-11-01] MEDS ORDERED: Lidocaine HCl 2% Jelly 6ml Tube TOPIC ONE (13:45)
== END 2020-11-01 13:40 | disposition home or self-care (01) ==
LOC: EMR 13:21
DX: L30.9 Dermatitis, unspecified (principal); B20 Human immunodeficiency virus [HIV] disease; G40.909 Epilepsy, unspecified, not intractable, without status epilepticus
CPT/HCPCS: 99282